=== PATIENT | female | born 1940 | race Caucasian/White ===

== ENCOUNTER 2016-06-13 10:40 | Outpatient (CLI) | payer MEDICARE, BC ==
[~2016-06-13] VITALS: Ht 160 cm; Wt 109.1 kg
--- NOTE | ~2016-06-13 | HEMODYNAMI ---
PATIENT:DAVINA ARORA MEDICAL RECORD: [id number] : 36 LOCATION:[facility] ADMISSION DATE: 06/13/16 Generatedon:06/13/201613:28 Patient name: DAVINA ARORA Patient #: [id number] SSN: : 1940 Date of study: 06/13/2016 Page: Of Hemodynamic Procedure Report Patient Data Patient Demographics Procedure consent was obtained First Name: DAVINA Gender: Female Last Name: ULYSSES : 1940 Patient #: [id number] Age: 75 year(s) Race: Unknown Additional ID: [id number] Contact details [address]: [address] [place] [address] State: [place] City: [place] Zip code: [address] Past Medical History Allergies Allergen Reaction Date Comments Reported Iodine 06/13/2016 Adhesive tape 06/13/2016 Antibiotics 06/13/2016 Bactrim, Cipro, Cephaloxin, Other allergy 06/13/2016 Nickel, Zantac Admission Admission Data Admission Date: 06/13/2016 Admission Time: 10:40 Lab Results Lab Result Date: 06/13/2016 Lab Result Time: 0:00 Biochemistry Name Units Result Min Max Creatinine mg/dl 1.4 --(----)*- 0.6 1.3 CBC Name Units Result Min Max Hemoglobin g/dl 14 --(*---)-- 13.5 17.5 Procedure Procedure Types Cath Procedure Diagnostic Procedure LHC LHC w/Coronaries Miscellaneous Procedures Moderate Sedation up to 30 minutes Procedure Description Procedure Date Procedure Date: 06/13/2016 Procedure Start Time: 13:16 Procedure End Time: 13:28 Procedure Staff Name Function Nixon Feng MD Performing Physician Jerry Guo RT Scrub Mando Le RN Nurse Elvira Alfredo RT Monitor Procedure Data Cath Procedure Fluoroscopy Diagnostic fluoroscopy Total fluoroscopy Time: 1.2 time: 1.2 min min Diagnostic fluoroscopy Total fluoroscopy dose: dose: 256.46 mGy 256.46 mGy Contrast Material Contrast Material Type Amount (ml) Isovue 300 62 Entry Location Entry Primary Successful Side Size Upsize Upsize Entry Closure Succes sful Closure Location (Fr) 1 (Fr) 2 (Fr) Remarks Device Remarks Femoral Right 5 Fr Exoseal artery Estimated blood loss: 5 ml Diagnostic catheters Device Type Used For End Catheter Placement Cordis 5Fr JL 4.0 Left Coronary Catheter (MP) Angiography Cordis 5Fr 3DRC Catheter Right Coronary (MP) Angiography Cordis 5Fr Pigtail LV Angiography Catheter (MP) Procedure Complications No complications Procedure Medications Medication Administration Route Dosage Oxygen NC 2 l/min Heparin Flush Bag added to field 2 bags (1000units/500ml NS) 0.9% NaCl I.V. 100 ml/hr Fentanyl I.V. 50 mcg Versed I.V. 1 mg Fentanyl I.V. 50 mcg Versed I.V. 1 mg Hemodynamics Rest HGB: 14 (g/dl) Heart Rate: 73 (bpm) Pressure Samples Time Site Value (mmHg) Purpose Heart Use Rate(bpm) 13:22 LV 470/466,335 EDP 78 13:22 LV 156/-10,18 EDP 79 Gradients Valve Time Site Site Mean SEP/DFP Peak To Heart Use 1 2 (mmHg) (sec/min) Peak Rate (mmHg) (bpm) Aortic 13:23 LV AO 80 Snapshots Pre Cath Intra NCS Post Cath Vital Signs Time Heart Resp SPO2 NIBP (mmHg) Rhythm Pain Sedation Rate (ipm) (%) Status Level (bpm) 13:05:33 72 18 100 186/108(156) NSR 0 (11) 10(A) , No pain 13:10:36 74 18 98 178/104(145) NSR 0 (11) 10(A) , No pain 13:15:35 71 18 99 175/97(147) NSR 0 (11) 10(A) , No pain 13:20:32 74 18 98 175/97(143) NSR 0 (11) 9(A) , No pain 13:25:29 81 17 97 181/111(148) NSR 0 (11) 9(A) , No pain Medications Time Medication Route Dose Verified Delivered Reason Notes Effec tiveness by by 12:59:34 Oxygen NC 2 Mando Gilmore Per l/min Rey Le RN physician RN 12:59:48 Heparin Flush added 2 Mando Gilmore used for Bag to bags Rey Le RN procedure (1000units/500ml field RN NS) 12:59:59 0.9% NaCl I.V. 100 Mando Gilmore Per ml/hr Rey Le RN physician RN 13:08:53 Fentanyl I.V. 50 Mando Mando for [facility] [place] Rey Le RN sedation RN 13:09:00 Versed I.V. 1 mg Mando Laniery for Rey Le RN sedation RN 13:14:59 Fentanyl I.V. 50 Mando Gilmore for [facility] Rey Le RN sedation RN 13:15:10 Versed I.V. 1 mg Mando Laniery for Rey Le RN sedation steel loader Log Time Note 12:35:24 Mando Le RN sent for patient. Start room use. 12:39:51 Informed consent obtained and on chart 12:40:23 Diagnostic Cath status Elective 12:40:25 Time tracking: Regular hours 12:40:47 Plan of Care:Hemodynamics will remain stable., Cardiac rhythm will remain stable., Comfort level will be maintained., Respiratory function will remain adequate., Patient/ family verbilizes understanding of procedure., Procedure tolerated without complication., Recovers from procedure without complications.. 12:50:26 Patient received from Pre/Post Procedure Room to [facility] 3 Alert and oriented. Tansferred to table in Supine position. 12:50:27 Warm blankets applied, and raz hugger turned on for patient comfort. 12:50:28 Correct patient and procedure confirmed by team. 12:50:28 ECG and BP/O2 sat monitors applied to patient. 12:50:41 Full Disclosure recording started 12:58:55 Vital chart was started 12:59:34 Oxygen 2 l/min NC was administered by Mando Le RN; Per physician; 12:59:48 Heparin Flush Bag (1000units/500ml NS) 2 bags added to field was administered by Mando Le RN; used for procedure; 12:59:59 0.9% NaCl 100 ml/hr I.V. was administered by Mando Le RN; Per physician; 13:01:06 H&P Date Dictated: 05/20/2016 Within 30 days and on chart., H&P Addendum completed by physician on day of procedure. (MUST COMPLETE FOR ALL OUTPATIENTS). 13:01:10 Rhythm: sinus rhythm 13:01:19 Pre-procedure instructions explained to patient. 13:01:19 Pre-op teaching completed and patient verbalized understanding. 13:01:20 Family in waiting room. 13:01:24 Patient NPO since Midnight. 13:01:31 Patient allergic to Iodine 13:01:40 Patient allergic to Adhesive tape 13:02:24 Patient allergic to AntibioticsBactrim, Cipro, Cephaloxin, 13:02:45 Patient allergic to Other allergyNickel, Zantac 13:02:55 Baseline sample Acquired. 13:04:02 Is the patient allergic to Iodine/contrast media? Yes. 13:04:03 Was the patient premedicated? Yes 13:04:06 Is patient on blood thinner?No 13:04:35 Patient diabetic? Yes. 13:04:38 If diabetic: On Metformin? No 13:04:42 Previous problem with sedation/anesthesia? No ? 13:04:43 Snore? No 13:04:44 Sleep apnea? No 13:04:45 Deviated septum? No 13:04:46 Opens mouth fully? Yes 13:04:47 Sticks out tongue? Yes 13:04:50 Airway obstruction? No ? 13:04:53 Dentures? Yes Out 13:04:56 Pre procedure: right dorsailis pedis pulse 1+ Palpable, but thready & weak; easily obliterated 13:05:02 Pre procedure: right radial pulse 0-Absent 13:05:05 Patient pain scale 0/10 ?. 13:05:15 IV patent on arrival in left forearm with 0.9% NaCl at O. 13:05:48 Lab Result : Creatinine 1.4 mg/dl 13:05:48 Lab Result : Hemoglobin 14 g/dl 13:05:52 Lab results completed and on chart. 13:05:55 Right groin area was prepped with chlora-prep and draped in sterile fashion 13:05:55 Alarms reviewed by R. N. 13:05:56 Sharps counted by scrub and verified by R.N. 13:05:58 Use device set Femoral Dx 13:05:59 Acist Syringe opened to sterile field. 13:05:59 Bag Decanter opened to sterile field. 13:06:00 Medline Cath Pack opened to sterile field. 13:06:00 Terumo 5Fr [place] Sheath opened to sterile field. 13:06:01 St Prieto 260cm J .035 wire opened to sterile field. 13:06:02 Acist Hand Control opened to sterile field. 13:06:03 Acist Manifold opened to sterile field. 13:06:03 Diagnostic Infinity 5Fr Multipack catheter opened to sterile field. 13:06:05 Tegaderm 4 x 4 opened to sterile field. 13:08:25 Final Timeout: patient, procedure, and site verified with staff and physician. All members of the team are in agreement. 13:08:27 Right groin site verified by team. 13:08:30 Physical assessment completed. ASA score P 2 - A patient with mild systemic disease as per Nixon Feng MD. 13:08:37 Sedation plan: IV Moderate Sedation Versed, Fentanyl 13:08:53 Fentanyl 50 mcg I.V. was administered by Mando Le RN; for sedation; 13:09:00 Versed 1 mg I.V. was administered by Mando Le RN; for sedation; 13:12:41 Zero performed for pressure channel P1 13:14:59 Fentanyl 50 mcg I.V. was administered by Mando Le RN; for sedation; 13:15:10 Versed 1 mg I.V. was administered by Mando Le RN; for sedation; 13:16:18 Procedure started. 13:16:32 Local anesthetic to right femoral artery with Lidocaine 2% by Nixon Feng MD.INITIAL ACCESS ONLY 13:17:59 A 5 Fr sheath was inserted into the Right Femoral artery 13:18:20 A Cordis 5Fr JL 4.0 Catheter (MP) was advanced over the wire and used for Left Coronary Angiography. 13:20:45 Catheter removed. 13:20:51 A Cordis 5Fr 3DRC Catheter (MP) was advanced over the wire and used for Right Coronary Angiography. 13:21:30 Catheter removed. 13:22:03 A Cordis 5Fr Pigtail Catheter (MP) was advanced over the wire and used for LV Angiography. 13:23:13 LV gram done using THACKER 13:23:17 EF : 55 % 13:23:18 LV hemodynamics recorded. 13:23:21 Injector settings: Ml/sec: 10, Volume: 20, 13:23:34 Catheter removed. 13:23:45 Sheath removed intact; hemostasis achieved with Exoseal to the Right Femoral artery. 13:24:13 Cordis 5Fr Exoseal opened to sterile field. 13:24:16 Procedure ended.(Physican Out) 13:25:14 Fluoroscopy time 01.20 minutes. 13:25:22 Flurop Dose total: 256.46 13:25:22 Fluoroscopy dose: 256.46 mGy 13:25:27 Contrast amount:Isovue 300 62ml. 13:25:28 Sharps counted by scrub and verified by R.N. 13:25:29 Insertion/operative site no bleeding no hematoma. 13:25:32 Post-op/insertion site Right Femoral artery dressed using a 4 x 4 and Tegaderm. 13:25:35 Post right femoral artery:stable, clean and dry 13:25:36 Post Procedure Pulses reassessed and unchanged 13:25:39 Post-procedure physical assessment completed. ASA score P 2 - A patient with mild systemic disease as per Nixon Feng MD. 13:25:41 Post procedure rhythm: unchanged. 13:25:44 Estimated blood loss: 5 ml 13:25:45 Post procedure instruction explained to patient.Patient verbalizes understanding. 13:25:46 Patient needs reinforcement of post procedure teaching. 13:26:04 Procedure type changed to Cath procedure, Diagnostic procedure, LHC, LHC w/Coronaries, Miscellaneous Procedures, Moderate Sedation up to 30 minutes 13:26:32 Procedure Complication : No complications 13:26:51 See physician's report for complete and final results. 13:27:09 Procedure and supply charges have been captured, reviewed, submitted and are correct. 13:27:55 Vital chart was stopped 13:27:57 Report given to Pre/Post Procedure Room. 13:28:00 Patient transfered to Pre/Post Procedure Room with Stretcher. 13:28:08 Procedure ended. 13:28:08 Full Disclosure recording stopped 13:28:14 End room use (Document Last) Device Usage Item Name Manufacture Quantity Catalog Hospital Part Current Minimal Lo t# / Number Charge Number Stock Stock Serial# Code Acist Acist 1 [id number] [id number] 120971 871069 20 Syringe [employer] Bag Microtek 1 2002S 922399 80209 042956 5 [employer] Medline Cardinal 1 [id number] 983545 55955 742373 5 Cath Pack Health Terumo 5Fr Terumo 1 [id number] 066727 549813 226521 [address] Prieto 1 139718 514490 941343 817949 30 260cm J .035 wire Acist Hand Acist 1 78653 834209 412727 821100 5 Control [employer] Inc Acist Acist 1 42706 709385 476305 862046 5 Manifold [employer] Diagnostic Cardinal 1 [id number] 779784 54227 184743 30 Infinity Health 5Fr Multipack catheter Tegaderm 4 3M 1 1626W 677561 693063 831889 5 x 4 Cordis 5Fr Cardinal 1 151095 5 JL 4.0 Health Catheter (MP) Cordis 5Fr Cardinal 1 140603 5 3DRC Health Catheter (MP) Cordis 5Fr Cardinal 1 913310 5 Pigtail Health Catheter (MP) Cordis 5Fr Cardinal 1 EX500 236407 905189 364728 10 [facility] Health Signature Audit Blanch Stage Time Signature Unsigned Intra-Procedure 06/13/2016 Elvira 1:28:28 PM Counts RT(R) Signatures Monitor : Elvira Signature : Counts RT Date : Time : [id number] [place] [address]
[2016-06-13] MEDS ORDERED: PREDNISONE20 MG PO (11:13)
[2016-06-13] MEDS ORDERED: KEPPRA XR500 MG PO (11:14)
[2016-06-13] MEDS ORDERED: KEPPRA500 MG PO (11:14)
[2016-06-13] MEDS ORDERED: LIPITOR80 MG PO (11:15)
[2016-06-13] MEDS ORDERED: PAXIL40 MG PO (11:15)
[2016-06-13] MEDS ORDERED: SYNTHROID112 MCG PO (11:16)
[2016-06-13] MEDS ORDERED: GLUCOTROL ER2.5 MG PO (11:17)
[2016-06-13] MEDS ORDERED: NORVASC2.5 MG PO (11:17)
[2016-06-13] MEDS ORDERED: CENTRUM COMPLE1 EACH PO (11:17)
[2016-06-13] MEDS ORDERED: FISH OIL 1,0001 CA1 PO (11:18)
[2016-06-13] MEDS ORDERED: BAYER CHEWABLE81 MG PO (11:18)
[2016-06-13] MEDS ORDERED: MULTI-DAY VITAM1 TAB PO (11:18)
[2016-06-13] MEDS ORDERED: VITAMIN D31000 UNIT PO (11:20)
[2016-06-13] MEDS ORDERED: CRANBERRY 400 M1 TA1 PO (11:20)
[2016-06-13 11:25] VITALS: BP 166/93; Ht 160 cm; Wt 109.1 kg
[2016-06-13 12:24] LABS: BASOPHILS 0.1 % (0.0-2.0); EOSINOPHILS 0 % (0-7); HEMATOCRIT 41.3 % (36.0-48.0); IMMATURE GRANULOCYTES 1.1 % (0-5); LYMPHOCYTES 18.7 % (15-50); MCHC 33.9 g/dL (31.0-37.0); MCV 94.3 fL (80.0-100.0); MEAN PLATELET VOLUME 10.4 fL (7.4-10.4); MONOCYTES 7.1 % (2-11); PLATELET COUNT 223 10x3/uL (130-400); RBC 4.38 10x6/uL (4.00-5.40); RDW 14.4 % (11.5-14.5); WBC 15.8 10x3/uL (4.8-10.8)
[2016-06-13 12:33] LABS: ANION GAP 19.3 mmol/L (8-16); CALCIUM 9.9 mg/dL (8.5-10.1); CARBON DIOXIDE 18.4 mmol/L (21.0-32.0); CREATININE - SERUM 1.4 mg/dL (0.6-1.3); POTASSIUM - SERUM 5.7 mmol/L (3.5-5.1)
--- NOTE | 2016-06-13 13:55 | NUR ---
1345 RECEIVED PT FROM PUTTY PATCHER, PT IS DROWSY, AWAKENS TO VERBAL STIMULI. DENIES ANY C/O. EXOSEAL IS CDI TO RIGHT GROIN, AREA IS SOFT WITH NO BLEEDING OR HEMATOMA NOTED. PEDAL PULSES PALPABLE. IV INFUSING PER ORDERS. CALL LIGHT IN REACH, INSTRUCTED PT TO CALL FOR NEEDS AND SHE VERBALIZES UNDERSTANDING.
--- NOTE | 2016-06-13 14:09 | NUR ---
1400 PT DENIES ANY C/O. EXOSEAL TO RIGHT GROIN IS CDI, NO BLEEDING OR HEMATOMA NOTED. PEDAL PULSES PALPABLE. OFFERED PO FLUIDS AND PT STATES DOES NOT WANT ANY AT THIS TIME. FAMILY AT BEDSIDE. CALL LIGHT IN REACH.
--- NOTE | 2016-06-13 14:26 | NUR ---
1430 PT DENIES ANY C/O. DRESSING TO RIGHT GROIN IS CDI, NO BLEEDING OR HEMATOMA NOTED AT SITE. PEDAL PULSES ARE PALPABLE. CALL LIGHT IN REACH. PT DENIES NEEDS AT THIS TIME.
--- NOTE | 2016-06-13 15:03 | NUR ---
1500 PT DENIES ANY C/O VSS, DRESSING TO RIGHT GROIN IS CDI, NO BLEEDING OR HEMATOMA NOTED. CALL LIGHT IN REACH. DENIES NEEDS AT THIS TIME.
--- NOTE | 2016-06-13 15:40 | NUR ---
1530 SAT PT UPRIGHT, RIGHT GROIN EXOSEAL IS CDI, NO BLEEDING OR HEMATOMA NOTED. PT DENIES ANY C/O. 1540 IV DC'D WITH CATH INTACT. PT STATES DOES NOT WANT SANDWICH BUT CRACKERS/ PEANUT BUTTER SERVED AND PT GABRIEL WELL. 1545 PT HAS AMBULATED TO THE BATHROOM AND VOIDED QS. DAUGHTER AT BEDSIDE, HELPING PT DRESS FOR DC TO HOME.
--- NOTE | 2016-06-13 15:53 | NUR ---
1555 PT HAS GABRIEL PEANUT BUTTER AND JOHN CRACKERS WITH NO C/O NAUSEA. RIGHT GROIN DRESSING REMAINS CDI WITH NO BLEEDING OR HEMATOMA NOTED. REVIEWED DC INSTRUCTIONS WTIH PT AND DAUGHTER WHO VERBALIZE UNDERSTANDING. PT ESCORTED TO PRIVATE AUTO VIA WC BY STAFF WITH SISTER DRIVING HER HOME.
--- NOTE | 2016-06-14 08:07 | OP ---
PATIENT NAME: DAVINA ARORA MEDICAL RECORD: [id number] :38 LOCATION:D.CAT ADMISSION DATE: SURGEON: HORACIO CEDEÑO MD DATE OF OPERATION: 06/13/2016 PROCEDURE: Left heart catheterization, selective coronary angiography, right femoral artery approach. CATHETERS: A 5-Uzbek sheath, 5/4 left and right Bing, 5/4 pig. The procedure was well tolerated and the patient returned to the salcido. Sheath removed. ExoSeal device placed. FINDINGS: Left ventriculography in 30-degree THACKER view. Normal wall motion, normal systolic function. CORONARY ANATOMY: LEFT MAIN: Left main is free of disease. LAD: Free of disease in the diagonal system. CIRCUMFLEX: Free of disease in the marginal system. RIGHT CORONARY ARTERY: Dominant artery, gives rise to PDA, free of disease. IMPRESSION: Normal systolic function. Normal coronary anatomy. TRANSINT:[id number] Voice Confirmation ID: [id number] DOCUMENT ID: [id number] HORACIO CEDEÑO MD at 0807 CC: [id number] DICTATION DATE: 06/13/16 1330 TRANSMISSION WORKER: 06/13/16 1827 DEP CLI 06/13/16 [facility] [address] [place] [address]
== END 2016-06-13 15:55 | disposition home or self-care (01) ==
LOC: D.CATH 10:40
PROVIDERS: Internal Medicine Interventional Cardiology
DX: I20.9 Angina pectoris, unspecified (principal); R06.02 Shortness of breath; E78.5 Hyperlipidemia, unspecified; I10 Essential (primary) hypertension; R94.30 Abnormal result of cardiovascular function study, unspecified